=== PATIENT | male | born 1955 | race Caucasian/White ===

== ENCOUNTER 2017-07-19 19:17 | Emergency (ER) | payer OTHER ==
[2017-07-19 19:36] VITALS: BP 134/77; PULSE 68; RESP 18; TEMP 97.8
[2017-07-19] MEDS ORDERED: methylPREDNISolone SOD SUCCI 125 MG/2 ML VIAL IM ONE (20:04)
--- NOTE | 2017-07-19 20:04 | ED ---
Skin/Abscess/FB HPI - General Chief complaint: Skin/Abscess/Foreign Body Stated complaint: Skin Rash Time Seen by Provider: 07/19/17 19:49 Source: patient, RN notes reviewed, old records reviewed Mode of arrival: ambulatory Limitations: no limitations - History of Present Illness Initial comments: Patient is a 61 year old male with rash over neck, and arms after exposure to poison lexii or poison oak. Patient has been using benadryl. No improvement. MD complaint: rash Onset/Timin -: week(s) Tetanus Up to Date: yes Location: LUE, RUE, L hand, R hand Severity: moderate Severity scale (1-10): 7 Quality: other (itching. ) Improves with: topical medication, medication Worsens with: none - Related Data Previous Rx's Medication Instructions Recorded Hydrocortisone Cream 1 applic TOPICAL QID #60 gm 07/19/17 [Hydrocortisone 1% Cream] predniSONE 20 mg PO TID #24 tab 07/19/17 Allergies Allergy/AdvReac Type Severity Reaction Status Date / Time latex Allergy Unknown Verified 07/19/17 19:36 Review of Systems ROS Statement: Those systems with pertinent positive or pertinent negative responses have been documented in the HPI. ROS Other: All systems not noted in ROS Statement are negative. Past Medical History Past Medical History: No Reported History, Cancer Additional Past Medical History / Comment(s): skin cancer History of Any Multi-Drug Resistant Organisms: None Reported Past Surgical History: No Surgical Hx Reported Past Psychological History: No Psychological Hx Reported Smoking Status: Current every day smoker Past Alcohol Use History: Occasional Past Drug Use History: None Reported General Exam - General Exam Comments Initial Comments: This is a well appeairng 61 year old male, no distress. Limitations: no limitations General appearance: alert, in no apparent distress Head exam: Present: atraumatic, normocephalic, normal inspection Eye exam: Present: normal appearance, PERRL, EOMI. Absent: scleral icterus, conjunctival injection, periorbital swelling ENT exam: Present: normal exam, mucous membranes moist Neck exam: Present: normal inspection. Absent: tenderness, meningismus, lymphadenopathy Respiratory exam: Present: normal lung sounds bilaterally. Absent: respiratory distress, wheezes, rales, rhonchi, stridor Cardiovascular Exam: Present: regular rate, normal rhythm, normal heart sounds. Absent: systolic murmur, diastolic murmur, rubs, gallop, clicks GI/Abdominal exam: Present: soft, normal bowel sounds. Absent: distended, tenderness, guarding, rebound, rigid Extremities exam: Present: normal inspection, full ROM, normal capillary refill , other (Erythematous papular rash over bilateral forearms and neck consistent with posion oak. linear pattern noted. ). Absent: tenderness, pedal edema, joint swelling, calf tenderness Psychiatric exam: Present: normal affect, normal mood Skin exam: Present: warm, dry, intact, normal color. Absent: rash Course Vital Signs 07/19/17 19:33 Temperature 97.8 F Pulse Rate 68 Respiratory 18 Rate Blood Pressure 134/77 O2 Sat by Pulse 99 Oximetry Medical Decision Making - Medical Decision Making Patient is a 61 year old male with exposure to poison oak on arms, neck and hands. Patient given IM steriods and DC with Rx for steriod taper, and advised to use caladryl. Return parameters discussed. Disposition Clinical Impression: Contact dermatitis due to poison oak Disposition: HOME SELF-CARE Condition: Good Instructions: Poison Lexii (ED) Additional Instructions: Patient has a follow up with primary care provider within the next 1-2 weeks. Take the steroids as prescribed hydrocortisone cream. Also use Caladryl lotion over the areas. Prescriptions: Hydrocortisone Cream [Hydrocortisone 1% Cream] 1 applic TOPICAL QID #60 gm predniSONE 20 mg PO TID #24 tab Is patient prescribed a controlled substance at d/c from ED?: No When asked, does pt state using other controlled substances?: No If prescribed controlled substance>3 days was MAPS reviewed?: No If opioid is for acute pain is fill amount 7 days or less?: No If Rx opioid, was Start Talking consent form obtained?: No Referrals: Juan Manuel Oliveira DO [Primary Care Provider] - 1-2 days Time of Disposition: 20:01
== END 2017-07-19 20:31 | disposition home or self-care (01) ==
LOC: EC 19:17
DX: L23.7 Allergic contact dermatitis due to plants, except food (principal); F17.200 Nicotine dependence, unspecified, uncomplicated; Z91.040 Latex allergy status
CPT/HCPCS: 99283; 96372; J2930